=== PATIENT | male | born 1930 | race Caucasian/White ===

== ENCOUNTER 2017-11-01 19:38 | Emergency (ER) | payer MEDICARE, OTHER ==
[2017-11-01 20:22] LABS: Hematocrit 43.6 % (42.0-52.0); Mean Platelet Volume 8.4 fL (7.4-10.4); Red Blood Cell (RBC) Count 4.47 mill/uL (4.70-6.10); White Blood Cell (WBC) Count 11.6 thou/uL (4.8-10.8)
[2017-11-01 20:39] LABS: ALT (SGPT) 15 U/L (8-55); AST (SGOT) 24 U/L (5-34); Alkaline Phosphatase 66 U/L (40-150); Anion Gap 13 mmol/L (10-20); BUN (Urea Nitrogen) 20 mg/dL (8.4-25.7); Bilirubin, Total 0.6 mg/dL (0.2-1.2); Calc. Creatinine Clearance 0 mL/min (70-130); Calcium 9.9 mg/dL (7.8-10.44); Carbon Dioxide 28 mmol/L (23-31); Chloride 105 mmol/L (98-107); Estimated GFR-MDRD 62; Protein, Total 7.9 g/dL (5.8-8.1)
[2017-11-01 20:41] LABS: Band 17 % (5-11); Neutrophil 41 % (42-75)
--- NOTE | 2017-11-01 21:12 | RAD ---
SEMI UPRPIGHT PORTABLE CHEST ONE VIEW: History: 87-year-old male with history of cough and fever. Comparison: 04-26-17 FINDINGS: Monitor leads overlie the chest. Atherosclerotic ectatic changes of the aorta. Stable lower right nec k and upper anterior mediastinal mass with some shift of the trachea to the left, evidence for large thyroid. Stable from prior study. No confluent pneumonia, overt edema, or pleural effusion. IMPRESSION: Stable chest. 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 Atherosclerosis of the aorta with ectasia. No new process. POS: [facility]
[2017-11-01 22:59] LABS: Bilirubin Negative (Negative); Blood, Urine Moderate (Negative); Glucose, Urine (Dipstick) Negative (Negative); Ketone, Urine Negative (Negative); Nitrite Negative (Negative); Protein, Urine (Dipstick) 100 mg/dL (Neg-Trace)
[2017-11-01 23:01] LABS: Bacteria/HPF None Seen HPF (None Seen)
[2017-11-01 23:17] LABS: Hyaline Casts/LPF 0-3 HYALINE CAST LPF (0-3 Hyaline); Transitional Epithelial NONE SEEN HPF (0-3); Yeast-All Forms None Seen HPF (None Seen)
[2017-11-01 23:18] LABS: Renal Epithelial 0-3 HPF (0-3)
== END 2017-11-02 00:38 | disposition home or self-care (01) ==
LOC: ERS 19:38
DX: E86.0 Dehydration (principal); J06.9 Acute upper respiratory infection, unspecified; K21.9 Gastro-esophageal reflux disease without esophagitis; M19.90 Unspecified osteoarthritis, unspecified site; F41.9 Anxiety disorder, unspecified; F32.9 Major depressive disorder, single episode, unspecified; G30.9 Alzheimer's disease, unspecified; F02.80 Dementia in other diseases classified elsewhere, unspecified severity, without behavioral disturbance, psychotic disturbance, mood disturbance, and anxiety; Z87.891 Personal history of nicotine dependence
CPT/HCPCS: 36415; 51701; 71010; 80053; 81003; 81015; 85025; 87040; 87149

== ENCOUNTER 2018-11-18 13:35 | Inpatient (IN) | payer MEDICARE ==
[~2018-11-18 13:35] MED LIST: ISOVUE-370 76%-LOCM 1 ML ONE
--- NOTE | 2018-11-18 14:15 | CT ---
CT BRAIN: Date: 11/18/18 PROVIDED CLINICAL HISTORY: Right-sided facial droop and weakness. FINDINGS: Comparison with 01/22/17. The ventricular system is unchanged in size and morphology. There is evidence of encephalomalacia inv olving the cerebellum and occipital regions, unchanged with respect to the prior study. 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 There is no evidence for acute intracranial he morrhage or mass effect. Asymmetric CSF density within the left frontal region may reflect hygroma. IMPRESSION: No evidence for acute intracranial hemorrhage. Findings communicated to Dr. Yates at 1345 hours on 11/18/18. CODE CR. POS: [facility]
[2018-11-18 14:17] LABS: INR-International Normal Ratio 1.1; Prothrombin Time 14.5 SEC (12.0-14.7)
[2018-11-18 14:18] LABS: PTT 32.1 SEC (22.9-36.1)
[2018-11-18 14:19] LABS: #Basophils 0.1 thou/uL (0.0-0.2); #Eosinphils 0.2 thou/uL (0.0-0.7); #Lymphocytes 2.5 thou/uL (1.20-3.40); #Monocytes 1.4 thou/uL (0.11-0.59); #Neutrophils 5.2 thou/uL (1.40-6.50); %Basophils 0.9 % (0.0-1.0); %Eosinophils 1.8 % (0.0-10.0); %Lymphocytes 27.2 % (21.0-51.0); %Monocytes 14.7 % (0.0-10.0); %Neutrophils 55.4 % (42.0-75.0); Hemoglobin 13.3 g/dL (14.0-18.0); Mean Corpuscular HGB CONC 32.6 g/dL (32.0-36.0); Mean Corpuscular Hemoglobin 30.9 pg (27.0-31.0); Mean Corpuscular Volume 94.6 fL (78.0-98.0); Mean Platelet Volume 7.8 fL (7.4-10.4); Platelet Count 335 thou/uL (130-400); RBC Distribution Width 12.4 % (11.5-14.5); White Blood Cell (WBC) Count 9.3 thou/uL (4.8-10.8)
[2018-11-18 14:25] LABS: ALT (SGPT) 8 U/L (8-55); AST (SGOT) 19 U/L (5-34); Albumin 3.3 g/dL (3.4-4.8); Alkaline Phosphatase 47 U/L (40-150); Anion Gap 15 mmol/L (10-20); BUN (Urea Nitrogen) 19 mg/dL (8.4-25.7); Bilirubin, Total 0.5 mg/dL (0.2-1.2); CK (CPK) 304 U/L (30-200); Calc. Creatinine Clearance 0 mL/min (70-130); Calcium 8.9 mg/dL (7.8-10.44); Carbon Dioxide 22 mmol/L (23-31); Chloride 105 mmol/L (98-107); Estimated GFR-MDRD 83; Glucose 102 mg/dL (83-110); Potassium 4.2 mmol/L (3.5-5.1); Protein, Total 6.3 g/dL (5.8-8.1); Sodium 138 mmol/L (136-145)
--- NOTE | 2018-11-18 14:58 | CT ---
CT ANGIOGRAM OF HEAD CT ANGIOGRAM OF NECK: Date: 11/18/18 COMPARISON: None. HISTORY: Right-sided facial droop and weakness. TECHNIQUE: Axial CT imaging is obtained at 1.2 mm intervals from the skull base through the lung apices with IV contrast using a CT angiogram protocol. Coronal and sagittal 3D reformatted imaging obtained. FINDINGS: Imaged lung apices are unremarkable. Incidental note is made of a left upper lobe granuloma, as well as hilar calcified nodes on the left, evidence of prior granulomatous disease. The thyroid gland is abnormal with an enlarged and lobulated right lobe, which appears to contain a l arge, complex nodule, and/or multiple complex solid nodules, in total measuring at least 7.6 cm crani ocaudal dimension, 5.7 cm transverse dimension, and 4.4 cm AP dimension. The retroantral and the parapharyngeal fat appears clear bilaterally. The parotid and the submandibular glands appear grossly unremarkable. Region of the tonsillar pillars, epiglottis and preepiglottic fat, hyoid bone, thyroid cartilage, and cricoid cartilage appear grossly unremarkable. No lymphadenopathy in the neck. There is atherosclerotic calcification involving the aortic arch. On the basis of NASCET criteria, th ere is no hemodynamically significant stenosis involving the origin of the innominate artery, the vamshi gin of the right common carotid artery, the origin of the right subclavian artery, the origin of the left common carotid artery, or the origin of the left subclavian artery. There is tortuosity involvin g the proximal subclavian artery on the right and the proximal aspect of bilateral common carotid art eries. The left vertebral artery is hypoplastic, but patent throughout its course. The right vertebral arter y is dominant and tortuous distally. There is no hemodynamically significant stenosis involving the common carotid artery on either side o n the basis of NASCET criteria. There is calcified plaque at the origin of the left internal carotid artery with no hemodynamically s ignificant stenosis on the basis of NASCET criteria. The internal carotid artery on the right also de monstrates no evidence for hemodynamically significant stenosis. The basilar artery is patent and diffusely ectatic. Branches of the basilar artery appear patent. There is atherosclerotic calcification of the cavernous carotid arteries bilaterally. The bifurcation of the internal carotid artery appears normal bilaterally. The A1 segment, region of the anterior communicating artery, and the distal PAM branches appear unremarkable. The M1 segment appears patent bilaterally. The MCA bifurcation appears grossly unremarkable. Distal M CA branches appear grossly intact with no central occlusion, high grade stenosis, or saccular aneurys m seen involving the anterior or posterior circulation. Review of the osseous structures demonstrate multilevel cervical spine degenerative change, most prom inent at C5-6 and C6-7. No worrisome lytic or blastic bone lesion. IMPRESSION: 1. No hemodynamically significant stenosis involving the arterial structures of the neck. 2. Intracranial arterial structures demonstrate no evidence for central occlusion. 3. Abnormal appearance of the thyroid gland, for which follow-up thyroid ultrasound is suggested. Results called to Dr. Yates at 1410 hours on 11/18/18. CODE CR. POS: [facility]
[2018-11-18 15:02] LABS: Bilirubin Negative (Negative); Blood, Urine Moderate (Negative); Clarity CLOUDY (Clear); Glucose, Urine (Dipstick) Negative (Negative); Leukocyte Large (Negative); Nitrite Negative (Negative); Protein, Urine (Dipstick) Negative (Neg-Trace); Specific Gravity, Urine 1.041 (1.002-1.036)
[2018-11-18 15:06] LABS: Bacteria/HPF 4+ HPF (None Seen); Squamous Epithelial 0-3 HPF (0-3)
[2018-11-18 15:07] LABS: Pathc Cast-AUWi Flag 4.94 (0-2.49)
[2018-11-18 15:13] LABS: Hyaline Casts/LPF 0-3 HYALINE CAST LPF (0-3 Hyaline); Other Casts/LPF None Seen LPF (0-3 Hyaline)
[2018-11-18] MEDS ORDERED: Acetaminophen 325 MG TAB PO PRN (15:38)
--- NOTE | 2018-11-18 17:11 | HP ---
PRIMARY CARE PROVIDER: Dr. Rei Thao. CHIEF COMPLAINT: Weakness. HISTORY OF PRESENT ILLNESS: Mr. Tolentino is a pleasant 88-year-old gentleman, who was seen at [facility] on November 18, 2018. The patient himself is unable to provide any significant history. Collateral history was obtained from discussion with the patient's son by the bedside, discussion with emergency room physician, and review of medical records. Mr. Tolentino is a resident at [facility]. 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 At baseline, he recognizes his family members. He needs help ambulating. Around 1:30 p.m. today, he was found to have right-sided facial droop and right upper extremity weakness. He was therefore sent to the emergency room. In the emergency room, his symptoms appear to have resolved. REVIEW OF SYSTEMS: Could not be completed secondary to the patient's noncommunicative status. PAST MEDICAL HISTORY: Dementia, benign prostatic hypertrophy, legal blindness, legal deafness, hypertension, chronic leg pain, back pain, osteoarthritis, gastroesophageal reflux disease, allergic rhinitis, and TIA x2 about 6 to 8 years ago. PAST SURGICAL HISTORY: Cholecystectomy, splenectomy, right nephrectomy, and right ankle surgery. PSYCHIATRIC HISTORY: Anxiety, mild depression, and Alzheimer disease. SOCIAL HISTORY: The patient is a former tobacco user. No history of current tobacco use, alcohol use, or recreational drug use. FAMILY HISTORY: No family history of cerebrovascular accident. CODE STATUS: I discussed his code status with his son. The patient is full code. ALLERGIES: CIMETIDINE, ERYTHROMYCIN, PENICILLIN, SULFA, TAGAMET ORAL SOLUTION. CURRENT MEDICATIONS: 1. Gabapentin 100 mg two times a day. 2. Protonix 40 mg daily. 3. Haldol as needed. 4. Metamucil daily as needed. 5. Bisoprolol 5 mg at bedtime. 6. Donepezil 10 mg at bedtime. PHYSICAL EXAMINATION: GENERAL: Mr. Tolentino is awake and alert, not in acute distress. VITAL SIGNS: Blood pressure is 101/78, pulse 78, respiratory rate 20, and oxygen saturation 95% on room air. He is afebrile. EYES: No scleral icterus. No conjunctival pallor. ENT: Pooling of saliva in the mouth. He is edentulous. NECK: Supple, nontender. Trachea is midline. RESPIRATORY: Accessory muscles of breathing are not active. Chest wall movements are symmetric bilaterally. LUNGS: Clear to auscultation without wheeze, rhonchi, or crepitations. CARDIOVASCULAR: S1 and S2 are heard, regular. Peripheral pulses palpable. No carotid bruit. No pericardial rub. ABDOMEN: Soft, nontender. Bowel sounds are heard. No hepatomegaly. No splenomegaly. NEUROLOGIC: Full neurologic examination was not possible secondary to the patient's noncooperation. Pupils are equal and reactive to light bilaterally. There is no facial droop. Power is 5/5 in all four extremities. No focal motor or sensory deficits. Deep tendon reflexes 2+. Plantars downgoing bilaterally. MUSCULOSKELETAL: Power is 5/5 in all four extremities. SKIN: No rashes or subcutaneous nodules. LYMPHATIC: No cervical lymphadenopathy. PSYCHIATRIC: Normal mood. Normal affect. The patient is oriented to person, not to place or time. LABORATORY DATA AND INVESTIGATIONS: Mr. Tolentino's labs and investigations were reviewed. I reviewed his electrocardiogram, which shows normal sinus rhythm with premature atrial complexes, no ST changes to suggest an acute coronary syndrome. I also reviewed noncontrast CT scan of the brain, which did not show any acute intracranial abnormalities. He also had CT scan of [place], which did not show any hemodynamically significant stenosis involving the arterial structures of the neck. Intracranial arterial structures did not demonstrate any evidence for central occlusion. He had abnormal appearance of the thyroid gland, radiologist recommends followup thyroid ultrasound. He has normocytic anemia with hemoglobin 13.3, normal white count, normal platelet count. INR 1.1. Normal sodium, normal potassium, slightly decreased carbon dioxide of 22, normal creatinine, mildly decreased albumin of 3.3, otherwise unremarkable liver profile, elevated CK of 304, and normal troponin-I. Urinalysis is positive for large amount of leukocyte esterase. ASSESSMENT AND PLAN: Mr. Tolentino is a pleasant 88-year-old gentleman, who was seen at [facility] on November 18, 2018. His problem list includes: 1. Weakness: Mr. Tolentino is presenting with weakness at [facility]. His symptoms appears to have improved. The main concern at this time is whether he had a TIA. He will be started on aspirin and statin. I will check MRI of the brain and 2D echocardiogram. We will also consult Neurology Service for opinion and help with management. 2. Urinary tract infection: The patient also presents with evidence of urinary tract infection. We will start him on empiric antibiotics. We will follow urine cultures. 3. Dementia: We will continue home medications once clarified. 4. Hypertension: We will resume home medications. Monitor vital signs and titrate antihypertensives as needed. 5. Gastroesophageal reflux disease: We will continue PPI. 6. Abnormal thyroid gland: The patient's thyroid gland has an abnormal appearance on CT scan. He will need further workup as outpatient. Many thanks for allowing me to participate in your patient's care. Please feel free to contact me with any questions or concerns. LEVEL OF RISK: High. LEVEL OF COMPLEXITY: High. Job ID: [id number] [facility]
[2018-11-18] MEDS ORDERED: cefTRIAXone\\ROCEPHIN 1 GM in Sodium Chloride 0.9% 100 ML IVPB SCH (18:00)
[2018-11-18 18:39] LABS: Troponin I Less than 0.010 ng/mL (< 0.028)
[2018-11-18 19:53] VITALS: BMI 28.1
[2018-11-18] MEDS: cefTRIAXone\\ROCEPHIN 1 GM in Sodium Chloride 0.9% 100 ML IVPB SCH (21:05)
[2018-11-18] MEDS: Haloperidol Lactate 5 MG/ML VIAL IM PRN (22:02)
[2018-11-19] MEDS: Haloperidol Lactate 5 MG/ML VIAL IM PRN ×2 (02:13→15:30)
[2018-11-19] MEDS: Atorvastatin Calcium 20 MG TAB PO SCH ×2 (05:18→21:45)
[2018-11-19 07:45] LABS: #Basophils 0.1 thou/uL (0.0-0.2); #Eosinphils 0.1 thou/uL (0.0-0.7); #Lymphocytes 2.9 thou/uL (1.20-3.40); #Monocytes 1.5 thou/uL (0.11-0.59); #Neutrophils 7.2 thou/uL (1.40-6.50); %Eosinophils 1.1 % (0.0-10.0); %Lymphocytes 24.7 % (21.0-51.0); %Monocytes 12.6 % (0.0-10.0); %Neutrophils 60.7 % (42.0-75.0); Hemoglobin 14.5 g/dL (14.0-18.0); Mean Corpuscular HGB CONC 33.2 g/dL (32.0-36.0); Mean Corpuscular Volume 93.2 fL (78.0-98.0); Mean Platelet Volume 7.7 fL (7.4-10.4); Platelet Count 379 thou/uL (130-400); RBC Distribution Width 12.3 % (11.5-14.5); Red Blood Cell (RBC) Count 4.68 mill/uL (4.70-6.10); White Blood Cell (WBC) Count 11.8 thou/uL (4.8-10.8)
[2018-11-19 07:53] LABS: Anion Gap 13 mmol/L (10-20); BUN (Urea Nitrogen) 16 mg/dL (8.4-25.7); Calc. Creatinine Clearance 71 mL/min (70-130); Calcium 9.4 mg/dL (7.8-10.44); Carbon Dioxide 25 mmol/L (23-31); Cardiac Risk 3.6 (Less than 4.5); Chloride 107 mmol/L (98-107); Cholesterol 140 mg/dl (< 200 Desired); Estimated GFR-MDRD 81; Glucose 102 mg/dL (83-110); HDL Cholesterol 39 mg/dL (>60 Neg Risk); LDL Cholesterol, Calculated 87 mg/dL; Potassium 3.9 mmol/L (3.5-5.1); Sodium 141 mmol/L (136-145); Triglycerides 72 mg/dL (Less than 150)
[2018-11-19] MEDS: Enoxaparin Sodium 40 MG/0.4 ML SYRINGE SC SCH (10:02)
[2018-11-19] MEDS: Aspirin 81 mg Enteric Coated Tablet PO SCH (10:03)
[2018-11-19] MEDS ORDERED: Lorazepam 0.5 MG TAB PO PRN (10:11)
[2018-11-19] MEDS ORDERED: Aspirin 81 mg Enteric Coated Tablet PO SCH (11:00)
[2018-11-19] MEDS ORDERED: Lorazepam 2 MG/ML VIAL SLOW IVP SCH (11:00)
--- NOTE | 2018-11-19 12:04 | CON ---
DATE OF CONSULTATION: 11/19/2018 CONSULTING PHYSICIAN: Hospitalist Service. IMPRESSION: 1. Possible transient ischemic attack. 2. Deafness. 3. Blindness. PLAN: 1. Continue aspirin and a statin. 2. The patient can be returned to the halfway unit. HISTORY OF PRESENT ILLNESS: Mr. Tolentino is an 88-year-old man, who is in a halfway unit. He reportedly had some right-sided weakness. He was brought to the hospital for evaluation. A CT scan and CTA were both unremarkable. He is unable to give me any history. PAST MEDICAL HISTORY: Apparently is otherwise negative. ALLERGIES: TAGAMET, ERYTHROMYCIN, AND PENICILLIN. SOCIAL HISTORY: shelter resident. There is no reported tobacco or alcohol use. FAMILY HISTORY: Not obtainable. MEDICATIONS: Reviewed. REVIEW OF SYSTEMS: Not obtainable due to his deafness. PHYSICAL EXAMINATION: GENERAL: He is a well-nourished elderly man, lying in bed, no distress. VITAL SIGNS: Blood pressure 118/77, pulse 87, respirations 20, and temperature 98.3. HEENT: Pupils are equal, minimally reactive. Conjunctivae clear. Oropharynx clear. NECK: Supple. No lymphadenopathy noted. ABDOMEN: Soft and nontender. EXTREMITIES: No cyanosis, clubbing, or edema. NEUROLOGIC: He appears to be awake and communicative, but could not answer any questions due to his deafness. His face appeared to be symmetric. He had symmetric central sterile technician strength. He had symmetric tone. Sensation was grossly equal. Gait is not testable. No abnormal movements were seen. LABORATORY STUDIES: It was unremarkable other than he appears to have a urinary tract infection. SUMMARY: This is an 88-year-old man with questionable history of a TIA. He has been started on aspirin and a statin. I do not see any need for further workup. Job ID: [id number]
[2018-11-19] MEDS ORDERED: traMADol HCl 50 MG TAB PO PRN (12:42)
[2018-11-19] MEDS ORDERED: Vicks VapoRub 50 gm Jar TOP PRN (12:42)
[2018-11-19] MEDS ORDERED: SUMAtriptan Succinate 25 MG TAB PO PRN (12:42)
--- NOTE | 2018-11-19 12:47 | PDOC.PN ---
- Subjective Encounter Start Date: 11/19/18 Encounter Start Time: 07:20 Pt seen for followup re:TIA. Pt unable to provide significant history, unable to complete ROS. - Objective Resuscitation Status - Order Detail: 11/18/18 15:38 Resuscitation Status Routine Resuscitation Status: FULL: Full Resuscitation Discussed with: son RANDY Reviewed: Yes Vital Signs & Weight: Vital Signs (12 hours) Temp Pulse Resp BP Pulse Ox 11/19/18 12:00 97.8 F 70 20 118/94 H 95 11/19/18 08:00 98.3 F 87 20 118/77 93 L 11/19/18 04:00 97.8 F 103 H 18 105/75 94 L Weight Weight 185 lb 3.2 oz I&O: 11/18/18 11/19/18 11/20/18 06:59 06:59 06:59 Output Total 300 Balance -300 Result Diagrams: 11/19/18 07:25 11/19/18 07:25 Additional Labs: Accuchecks 11/18/18 13:39 POC Glucose 105 EKG Reviewed by me: Yes (Tele: NSR) Phys Exam - Physical Examination Constitutional: NAD HEENT: moist MMs Neck: supple Respiratory: clear to auscultation bilateral Cardiovascular: RRR Gastrointestinal: soft Neurological: moves all 4 limbs Psychiatric: normal affect Dx/Plan (1) TIA (transient ischemic attack) Code(s): G45.9 - TRANSIENT CEREBRAL ISCHEMIC ATTACK, UNSPECIFIED Status: Acute Comment: continue aspirin and statin (2) UTI (urinary tract infection) Status: Acute Comment: continue ceftriaxone, follow urine cultures (3) Hypertension Code(s): I10 - ESSENTIAL (PRIMARY) HYPERTENSION Status: Chronic Comment: controlled - Plan * . Review of Systems - Medications/Allergies Allergies/Adverse Reactions: Allergies Allergy/AdvReac Type Severity Reaction Status Date / Time cimetidine [From Tagamet] Allergy Verified 03/14/17 16:52 cimetidine HCl [From Tagamet] Allergy Verified 03/14/17 16:52 erythromycin base Allergy Verified 03/14/17 16:52 Penicillins Allergy Verified 03/14/17 16:52 Sulfa (Sulfonamide Allergy Verified 03/14/17 16:52 Antibiotics) sulfamethoxazole Allergy Verified 03/14/17 16:52 [From Bactrim] trimethoprim [From Bactrim] Allergy Verified 03/14/17 16:52 Medications: Current Medications Acetaminophen (Tylenol) 650 mg PO Q4H PRN PRN Reason: Headache/Fever/Mild Pain (1-3) Aspirin (Ecotrin) 81 mg PO DAILY [facility] Last Admin: 11/19/18 10:03 Dose: Not Given Atorvastatin Calcium (Lipitor) 20 mg PO HS [facility] Last Admin: 11/19/18 05:18 Dose: Not Given Bisoprolol Fumarate (Zebeta) 5 mg PO HS [facility] Camphor/Menthol/Eucalyptus (Vicks Vaporub) 0 gm TOP Q24HR PRN PRN Reason: Congestion Donepezil HCl (Aricept) 10 mg PO HS [facility] Enoxaparin Sodium (Lovenox) 40 mg SC 0900 [facility] Last Admin: 11/19/18 10:02 Dose: 40 mg Gabapentin (Neurontin) 200 mg PO BID [facility] Haloperidol Lactate (Haldol) 1 mg IM Q2H PRN PRN Reason: Agitation Last Admin: 11/19/18 02:13 Dose: 1 mg Haloperidol Lactate (Haldol) 5 mg IM QPM PRN PRN Reason: Agitation Ceftriaxone Sodium 1 gm/ (Sodium Chloride) 100 mls @ 200 mls/hr IVPB 1999 [facility] Last Admin: 11/18/18 21:05 Dose: 100 mls Non-Formulary Medication (Melatonin/Pyridoxine [Melatonin 5 Mg Tablet]) 5 mg PO QPM [facility] Non-Formulary Medication (Tolnaftate [Tinactin]) 1 applic TOP BID [facility] Non-Formulary Medication (Carboxymethylcellulose Sodium [Refresh Tears]) 1 drop EA EYE Q1H PRN PRN Reason: Dry Eyes Non-Formulary Medication (Psyllium Husk [Metamucil]) 660 gm PO DAILY PRN PRN Reason: Constipation Pantoprazole Sodium (Protonix) 40 mg PO DAILY [facility] Polyethylene Glycol (Miralax) 17 gm PO DAILY [facility] Propylene Glycol (Systane Opth Drop 15ml Bot) 1 drop EA EYE TID [facility] Sodium Chloride (Flush - Normal Saline) 10 ml IVF PRN PRN PRN Reason: Saline Flush Last Admin: 11/18/18 21:06 Dose: 10 ml Sumatriptan Succinate (Imitrex) 50 mg PO DAILY PRN PRN Reason: Headache Tramadol HCl (Ultram) 50 mg PO Q6H PRN PRN Reason: Pain
--- NOTE | 2018-11-19 14:39 | MRI ---
MRI BRAIN WITHOUT CONTRAST: DATE: 11/19/2018. COMPARISON: None. HISTORY: Right-sided weakness, slurred speech. TECHNIQUE: Multiplanar, multisequence MR imaging of the brain obtained without contrast. FINDINGS: The imaged paranasal sinuses and mastoid air cells demonstrate no significant opacification. The dif fusion weighted imaging demonstrates no evidence for acute infarction. The axial gradient echo imagi ng demonstrates blooming artifact within the basal ganglia bilaterally suggesting calcification. The re is prominent cerebral volume loss. There is multifocal periventricular, deep, and subcortical whi te matter T2 and FLAIR hyperintensity, evidence of significant small-vessel disease. There are areas of prior infarction involving bilateral occipital lobes and bilateral cerebellar hemispheres. Basilar artery is ectatic and tortuous. There is normal regional bone marrow signal intensity noted. 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 No evidence for acute infarction is noted. POS: [facility]
[2018-11-19] MEDS: Polyethylene Glycol OPTH DROP 15 ML BOT EA EYE SCH ×2 (16:05→21:46)
[2018-11-19] MEDS ORDERED: MELATONIN PO SCH (21:00)
[2018-11-19] MEDS ORDERED: PYRIDOXINE PO SCH (21:00)
[2018-11-19] MEDS: Donepezil HCl 5 MG TAB PO SCH (21:45)
[2018-11-19] MEDS: Gabapentin 100 MG CAP PO SCH (21:45)
[2018-11-19] MEDS: Bisoprolol Fumarate 5 MG TAB PO SCH (21:45)
[2018-11-19] MEDS: cefTRIAXone\\ROCEPHIN 1 GM in Sodium Chloride 0.9% 100 ML IVPB SCH (21:45)
[2018-11-20 05:24] LABS: #Basophils 0.1 thou/uL (0.0-0.2); #Eosinphils 0.1 thou/uL (0.0-0.7); #Lymphocytes 2.7 thou/uL (1.20-3.40); #Monocytes 1.5 thou/uL (0.11-0.59); #Neutrophils 7.2 thou/uL (1.40-6.50); %Basophils 0.7 % (0.0-1.0); %Eosinophils 1.2 % (0.0-10.0); %Lymphocytes 22.9 % (21.0-51.0); %Monocytes 13.1 % (0.0-10.0); %Neutrophils 62.2 % (42.0-75.0); Hemoglobin 14.7 g/dL (14.0-18.0); Mean Corpuscular HGB CONC 33.1 g/dL (32.0-36.0); Mean Corpuscular Hemoglobin 31.1 pg (27.0-31.0); Mean Corpuscular Volume 94.1 fL (78.0-98.0); Platelet Count 372 thou/uL (130-400); RBC Distribution Width 12.3 % (11.5-14.5); Red Blood Cell (RBC) Count 4.71 mill/uL (4.70-6.10); White Blood Cell (WBC) Count 11.6 thou/uL (4.8-10.8)
[2018-11-20 05:54] LABS: Anion Gap 13 mmol/L (10-20); BUN (Urea Nitrogen) 18 mg/dL (8.4-25.7); Calc. Creatinine Clearance 69 mL/min (70-130); Calcium 9.2 mg/dL (7.8-10.44); Carbon Dioxide 25 mmol/L (23-31); Chloride 106 mmol/L (98-107); Estimated GFR-MDRD 79; Glucose 98 mg/dL (83-110); Potassium 3.6 mmol/L (3.5-5.1); Sodium 140 mmol/L (136-145)
[2018-11-20] MEDS ORDERED: Metamucil PACK PO PRN (09:00)
[2018-11-20] MEDS: Enoxaparin Sodium 40 MG/0.4 ML SYRINGE SC SCH (09:56)
[2018-11-20] MEDS: Gabapentin 100 MG CAP PO SCH ×2 (09:57→20:38)
[2018-11-20] MEDS: Aspirin 81 mg Enteric Coated Tablet PO SCH (09:57)
[2018-11-20] MEDS: Polyethylene Glycol OPTH DROP 15 ML BOT EA EYE SCH ×3 (09:57→20:39)
[2018-11-20] MEDS: Polyethylene Glycol 3350 17 GM Packet PO SCH (09:58)
--- NOTE | 2018-11-20 14:34 | PDOC.PN ---
- Subjective Encounter Start Date: 11/20/18 Encounter Start Time: 14:33 -: non-verbal Pt seen for followup re:UTI. Pt not answering questions, unable to complete ROS. - Objective Resuscitation Status - Order Detail: 11/18/18 15:38 Resuscitation Status Routine Resuscitation Status: FULL: Full Resuscitation Discussed with: son RANDY Reviewed: Yes Vital Signs & Weight: Vital Signs (12 hours) Temp Pulse Resp BP BP Pulse Ox 11/20/18 12:30 130/72 11/20/18 12:00 97.4 F L 95 18 93 L 11/20/18 08:00 97.8 F 89 18 117/84 96 11/20/18 04:00 98.6 F 86 18 121/79 95 Weight Weight 185 lb 3.2 oz I&O: 11/19/18 11/20/18 11/21/18 06:59 06:59 06:59 Intake Total 522 780 Output Total 300 Balance -300 522 780 Result Diagrams: 11/20/18 04:48 11/20/18 04:48 EKG Reviewed by me: Yes (Tele; NSR) Phys Exam - Physical Examination Constitutional: NAD HEENT: moist MMs Neck: supple Respiratory: clear to auscultation bilateral Cardiovascular: RRR Gastrointestinal: soft Neurological: moves all 4 limbs Psychiatric: normal affect Dx/Plan (1) UTI (urinary tract infection) Status: Acute Comment: continue ceftriaxone for presumptive Escherichia coli UTI, follow urine cultures (2) TIA (transient ischemic attack) Code(s): G45.9 - TRANSIENT CEREBRAL ISCHEMIC ATTACK, UNSPECIFIED Status: Acute Comment: will continue aspirin and statin (3) Hypertension Code(s): I10 - ESSENTIAL (PRIMARY) HYPERTENSION Status: Chronic Comment: controlled - Plan * . Review of Systems - Medications/Allergies Allergies/Adverse Reactions: Allergies Allergy/AdvReac Type Severity Reaction Status Date / Time cimetidine [From Tagamet] Allergy Verified 03/14/17 16:52 cimetidine HCl [From Tagamet] Allergy Verified 03/14/17 16:52 erythromycin base Allergy Verified 03/14/17 16:52 Penicillins Allergy Verified 03/14/17 16:52 Sulfa (Sulfonamide Allergy Verified 03/14/17 16:52 Antibiotics) sulfamethoxazole Allergy Verified 03/14/17 16:52 [From Bactrim] trimethoprim [From Bactrim] Allergy Verified 03/14/17 16:52 Medications: Current Medications Acetaminophen (Tylenol) 650 mg PO Q4H PRN PRN Reason: Headache/Fever/Mild Pain (1-3) Artificial Tears (Tears Renewed 15ml Bottle) 1 drop EA EYE Q1H PRN PRN Reason: Dry Eyes Aspirin (Ecotrin) 81 mg PO DAILY [facility] Last Admin: 11/20/18 09:57 Dose: 81 mg Atorvastatin Calcium (Lipitor) 20 mg PO HS [facility] Last Admin: 11/19/18 21:45 Dose: 20 mg Bisoprolol Fumarate (Zebeta) 5 mg PO HS [facility] Last Admin: 11/19/18 21:45 Dose: 5 mg Camphor/Menthol/Eucalyptus (Vicks Vaporub) 0 gm TOP Q24HR PRN PRN Reason: Congestion Donepezil HCl (Aricept) 10 mg PO HS [facility] Last Admin: 11/19/18 21:45 Dose: 10 mg Enoxaparin Sodium (Lovenox) 40 mg SC 0900 [facility] Last Admin: 11/20/18 09:56 Dose: 40 mg Gabapentin (Neurontin) 200 mg PO BID [facility] Last Admin: 11/20/18 09:57 Dose: 200 mg Haloperidol Lactate (Haldol) 1 mg IM Q2H PRN PRN Reason: Agitation Last Admin: 11/19/18 15:30 Dose: 1 mg Haloperidol Lactate (Haldol) 5 mg IM QPM PRN PRN Reason: Agitation Ceftriaxone Sodium 1 gm/ (Sodium Chloride) 100 mls @ 200 mls/hr IVPB 1999 [facility] Last Admin: 11/19/18 21:45 Dose: 100 mls Pantoprazole Sodium (Protonix) 40 mg PO DAILY [facility] Last Admin: 11/20/18 09:57 Dose: 40 mg Melatonin/Pyridoxine [Melatonin 5 Mg Tablet] 5 Mg 0 each PO QPM [facility] Polyethylene Glycol (Miralax) 17 gm PO DAILY [facility] Last Admin: 11/20/18 09:58 Dose: Not Given Propylene Glycol (Systane Opth Drop 15ml Bot) 1 drop EA EYE TID [facility] Last Admin: 11/20/18 14:16 Dose: 1 drop Psyllium Hydrophilic Mucilloid (Metamucil) 1 pk PO DAILY PRN PRN Reason: Constipation Sodium Chloride (Flush - Normal Saline) 10 ml IVF PRN PRN PRN Reason: Saline Flush Last Admin: 11/20/18 09:57 Dose: 10 ml Sumatriptan Succinate (Imitrex) 50 mg PO DAILY PRN PRN Reason: Headache Tolnaftate (Tinactin 1% Cream) 0 gm TOP BID [facility] Last Admin: 11/20/18 09:56 Dose: 1 appful Tramadol HCl (Ultram) 50 mg PO Q6H PRN PRN Reason: Pain
[2018-11-20] MEDS: Donepezil HCl 5 MG TAB PO SCH (20:38)
[2018-11-20] MEDS: Atorvastatin Calcium 20 MG TAB PO SCH (20:38)
[2018-11-20] MEDS: Bisoprolol Fumarate 5 MG TAB PO SCH (20:38)
[2018-11-20] MEDS: cefTRIAXone\\ROCEPHIN 1 GM in Sodium Chloride 0.9% 100 ML IVPB SCH (20:39)
[2018-11-20] MEDS: Haloperidol Lactate 5 MG/ML VIAL IM PRN (22:21)
[2018-11-21] MEDS ORDERED: Sodium Chloride 0.9% 1,000 ML IV SCH (02:15)
[2018-11-21 05:22] LABS: #Lymphocytes 0.7 thou/uL (1.20-3.40); #Monocytes 0.7 thou/uL (0.11-0.59); #Neutrophils 9.5 thou/uL (1.40-6.50); %Basophils 0.1 % (0.0-1.0); %Eosinophils 0.4 % (0.0-10.0); %Lymphocytes 6.6 % (21.0-51.0); %Monocytes 6.5 % (0.0-10.0); %Neutrophils 86.4 % (42.0-75.0); Hemoglobin 15.2 g/dL (14.0-18.0); Mean Corpuscular HGB CONC 33.2 g/dL (32.0-36.0); Mean Corpuscular Hemoglobin 30.9 pg (27.0-31.0); Mean Corpuscular Volume 93.3 fL (78.0-98.0); Mean Platelet Volume 8.2 fL (7.4-10.4); Platelet Count 365 thou/uL (130-400); RBC Distribution Width 12.5 % (11.5-14.5); Red Blood Cell (RBC) Count 4.92 mill/uL (4.70-6.10)
[2018-11-21 05:44] LABS: Anion Gap 18 mmol/L (10-20); BUN (Urea Nitrogen) 24 mg/dL (8.4-25.7); Calc. Creatinine Clearance 59 mL/min (70-130); Calcium 9.2 mg/dL (7.8-10.44); Carbon Dioxide 18 mmol/L (23-31); Chloride 107 mmol/L (98-107); Estimated GFR-MDRD 66; Glucose 125 mg/dL (83-110); Potassium 3.4 mmol/L (3.5-5.1); Sodium 140 mmol/L (136-145)
[2018-11-21] MEDS ORDERED: Potassium Chloride 20 MEQ TAB PO SCH (08:30)
[2018-11-21] MEDS: Polyethylene Glycol 3350 17 GM Packet PO SCH (08:54)
[2018-11-21] MEDS: Aspirin 81 mg Enteric Coated Tablet PO SCH (08:58)
[2018-11-21] MEDS: Gabapentin 100 MG CAP PO SCH ×2 (08:58→23:00)
[2018-11-21] MEDS: Enoxaparin Sodium 40 MG/0.4 ML SYRINGE SC SCH (08:58)
[2018-11-21] MEDS: Polyethylene Glycol OPTH DROP 15 ML BOT EA EYE SCH ×3 (08:59→23:29)
[2018-11-21 10:04] LABS: Free T4 (Free Thyroxine) 1.25 ng/dL (0.70-1.48)
[2018-11-21] MEDS: Digoxin 0.5 MG/2 ML AMP SLOW IVP SCH ×2 (15:14→17:36)
--- NOTE | 2018-11-21 15:29 | PDOC.PN ---
- Subjective Encounter Start Date: 11/21/18 Encounter Start Time: 07:20 Pt seen for followup re: UTI. Pt not answering questions, unable to complete ROS. - Objective Resuscitation Status - Order Detail: 11/18/18 15:38 Resuscitation Status Routine Resuscitation Status: FULL: Full Resuscitation Discussed with: son RANDY Reviewed: Yes Vital Signs & Weight: Vital Signs (12 hours) Temp Pulse Resp BP BP Pulse Ox 11/21/18 15:14 119 H 11/21/18 12:00 99 F 105 H 20 97/70 92 L 11/21/18 08:15 100/72 11/21/18 08:00 98.2 F 112 H 18 87/71 L 92 L 11/21/18 04:00 98.8 F 111 H 20 112/72 93 L Weight Weight 185 lb 3.2 oz I&O: 11/20/18 11/21/18 11/22/18 06:59 06:59 06:59 Intake Total 522 1837 120 Balance 522 1837 120 Result Diagrams: 11/21/18 04:55 11/21/18 04:55 EKG Reviewed by me: Yes (Tele: ? a. fib) Phys Exam - Physical Examination Constitutional: NAD HEENT: moist MMs Neck: supple Respiratory: clear to auscultation bilateral S1, S2, tachy, irreg Gastrointestinal: soft Neurological: moves all 4 limbs Psychiatric: normal affect Dx/Plan (1) UTI (urinary tract infection) Status: Acute Comment: continue ceftriaxone (2) TIA (transient ischemic attack) Code(s): G45.9 - TRANSIENT CEREBRAL ISCHEMIC ATTACK, UNSPECIFIED Status: Acute Comment: on aspirin and statin (3) Arrhythmia Code(s): I49.9 - CARDIAC ARRHYTHMIA, UNSPECIFIED Status: Acute Comment: afib vs MAT. Consult cardiology. (4) Hypertension Code(s): I10 - ESSENTIAL (PRIMARY) HYPERTENSION Status: Chronic Comment: controlled - Plan * . Given new arrhythmia, pt at significant risk of decompensation if discharged at this time. Will change status to inpatient. Review of Systems - Medications/Allergies Allergies/Adverse Reactions: Allergies Allergy/AdvReac Type Severity Reaction Status Date / Time cimetidine [From Tagamet] Allergy Verified 03/14/17 16:52 cimetidine HCl [From Tagamet] Allergy Verified 03/14/17 16:52 erythromycin base Allergy Verified 03/14/17 16:52 Penicillins Allergy Verified 03/14/17 16:52 Sulfa (Sulfonamide Allergy Verified 03/14/17 16:52 Antibiotics) sulfamethoxazole Allergy Verified 03/14/17 16:52 [From Bactrim] trimethoprim [From Bactrim] Allergy Verified 03/14/17 16:52 Medications: Current Medications Acetaminophen (Tylenol) 650 mg PO Q4H PRN PRN Reason: Headache/Fever/Mild Pain (1-3) Artificial Tears (Tears Renewed 15ml Bottle) 1 drop EA EYE Q1H PRN PRN Reason: Dry Eyes Aspirin (Ecotrin) 81 mg PO DAILY ON [facility] OF [facility] Last Admin: 11/21/18 08:58 Dose: 81 mg Atorvastatin Calcium (Lipitor) 20 mg PO HS ON [facility] OF [facility] Last Admin: 11/20/18 20:38 Dose: 20 mg Bisoprolol Fumarate (Zebeta) 5 mg PO HS ON [facility] OF [facility] Last Admin: 11/20/18 20:38 Dose: Not Given Camphor/Menthol/Eucalyptus (Vicks Vaporub) 0 gm TOP Q24HR PRN PRN Reason: Congestion Digoxin (Lanoxin) 0.25 mg SLOW IVP 1500,1700 ON [facility] OF [facility] Stop: 11/21/18 17:01 Last Admin: 11/21/18 15:14 Dose: 0.25 mg Digoxin (Lanoxin) 0.125 mg SLOW IVP QAM ON LICENSE OF [facility] Donepezil HCl (Aricept) 10 mg PO HS ON [facility] OF [facility] Last Admin: 11/20/18 20:38 Dose: 10 mg Enoxaparin Sodium (Lovenox) 40 mg SC 0900 ON [facility] OF [facility] Last Admin: 11/21/18 08:58 Dose: 40 mg Gabapentin (Neurontin) 200 mg PO BID [facility] Last Admin: 11/21/18 08:58 Dose: 200 mg Haloperidol Lactate (Haldol) 1 mg IM Q2H PRN PRN Reason: Agitation Last Admin: 11/19/18 15:30 Dose: 1 mg Haloperidol Lactate (Haldol) 5 mg IM QPM PRN PRN Reason: Agitation Last Admin: 11/20/18 22:21 Dose: 5 mg Ceftriaxone Sodium 1 gm/ (Sodium Chloride) 100 mls @ 200 mls/hr IVPB 2000 [facility] Last Admin: 11/20/18 20:39 Dose: 100 mls Melatonin (Melatonin) 4.5 mg PO HS [facility] Pantoprazole Sodium (Protonix) 40 mg PO DAILY [facility] Last Admin: 11/21/18 08:58 Dose: 40 mg Polyethylene Glycol (Miralax) 17 gm PO DAILY ON [facility] Last Admin: 11/21/18 08:54 Dose: Not Given Propylene Glycol (Systane Opth Drop 15ml Bot) 1 drop EA EYE TID ON LICENSE OF [facility] Last Admin: 11/21/18 15:18 Dose: Not Given Psyllium Hydrophilic Mucilloid (Metamucil) 1 pk PO DAILY PRN PRN Reason: Constipation Pyridoxine HCl (Vitamin B 6) 50 mg PO [facility] Sodium Chloride (Flush - Normal Saline) 10 ml IVF PRN PRN PRN Reason: Saline Flush Last Admin: 11/20/18 09:57 Dose: 10 ml Sumatriptan Succinate (Imitrex) 50 mg PO DAILY PRN PRN Reason: Headache Tolnaftate (Tinactin 1% Cream) 0 gm TOP BID ON [facility] OF [facility] Last Admin: 11/21/18 08:58 Dose: 1 appful Tramadol HCl (Ultram) 50 mg PO Q6H PRN PRN Reason: Pain
[2018-11-21] MEDS: cefTRIAXone\\ROCEPHIN 1 GM in Sodium Chloride 0.9% 100 ML IVPB SCH (22:53)
[2018-11-21] MEDS: Bisoprolol Fumarate 5 MG TAB PO SCH ×2 (23:00→23:19)
[2018-11-21] MEDS: Atorvastatin Calcium 20 MG TAB PO SCH (23:00)
[2018-11-21] MEDS: pyridOXINE 50 MG (B6) TAB PO SCH (23:01)
[2018-11-21] MEDS: Donepezil HCl 5 MG TAB PO SCH (23:01)
[2018-11-21] MEDS: Melatonin 3 MG TAB PO SCH (23:01)
[2018-11-21] MEDS: Artificial Tear Sol 15 ML BOT EA EYE PRN (23:02)
[2018-11-22] MEDS: Enoxaparin Sodium 40 MG/0.4 ML SYRINGE SC SCH (08:32)
[2018-11-22] MEDS: Digoxin 0.5 MG/2 ML AMP SLOW IVP SCH (08:32)
[2018-11-22] MEDS: Gabapentin 100 MG CAP PO SCH ×2 (08:32→20:11)
[2018-11-22] MEDS: Aspirin 81 mg Enteric Coated Tablet PO SCH (08:32)
[2018-11-22] MEDS: Polyethylene Glycol 3350 17 GM Packet PO SCH (08:34)
--- NOTE | 2018-11-22 09:34 | CON ---
DATE OF CONSULTATION: 11/21/2018 HISTORY OF PRESENT ILLNESS: The patient is an unfortunate gentleman with a history of cerebrovascular accident and dementia, who presented with altered mental status. The patient is unable to give a coherent history. He apparently has no known cardiac history. The patient was admitted with a possible CVA. He was noted to be in a regular heart rhythm. PAST MEDICAL HISTORY: Significant for; 1. Hypertension. 2. History of TIA. 3. Dementia. PAST SURGICAL HISTORY: . SOCIAL HISTORY: Lives in a longterm. FAMILY HISTORY: . ALLERGIES: HE IS ALLERGIC TO ERYTHROMYCIN, PENICILLIN, SULFA, TAGAMET. MEDICATIONS: See nursing list. PHYSICAL EXAMINATION: GENERAL: Ill-appearing gentleman, is alert and oriented x1. VITAL SIGNS: Blood pressure of 97/70. NECK: Showed no jugular venous distention. LUNGS: Coarse breath sounds. HEART: Irregular rate and rhythm. Normal S1, S2. ABDOMEN: Nondistended. EXTREMITIES: Showed no edema. VASCULAR: Radial pulse 2+. LABORATORY DATA: Sodium 140, potassium 3.4, chloride 107, bicarbonate 18, BUN 24, creatinine 1.06, glucose 125. White blood cell count 11.0, hemoglobin 15.2, hematocrit 46.2, and his platelets are 365. EKG revealed multifocal atrial tachycardia with a nonspecific T-wave abnormality. IMPRESSION: 1. Multifocal atrial tachycardia. 2. History of cerebrovascular accident. 3. Hypertension. 4. Dementia. PLAN: This unfortunate gentleman has multifocal atrial tachycardia. I would recommend treating with IV Lopressor at this time since he has not been able to take p.o. medication. We will start the patient on p.o. Cardizem. We will follow this patient with you through his hospitalization. Job ID: [id number]
[2018-11-22 10:08] LABS: #Eosinphils 0.2 thou/uL (0.0-0.7); #Lymphocytes 1.6 thou/uL (1.20-3.40); #Monocytes 1.2 thou/uL (0.11-0.59); %Basophils 0.4 % (0.0-1.0); %Eosinophils 2.1 % (0.0-10.0); %Lymphocytes 17.7 % (21.0-51.0); %Monocytes 13.6 % (0.0-10.0); %Neutrophils 66.3 % (42.0-75.0); Hemoglobin 14.6 g/dL (14.0-18.0); Mean Corpuscular HGB CONC 33.3 g/dL (32.0-36.0); Mean Corpuscular Hemoglobin 31.1 pg (27.0-31.0); Mean Corpuscular Volume 93.4 fL (78.0-98.0); Mean Platelet Volume 7.7 fL (7.4-10.4); Platelet Count 340 thou/uL (130-400); RBC Distribution Width 12.5 % (11.5-14.5); White Blood Cell (WBC) Count 9.1 thou/uL (4.8-10.8)
[2018-11-22] MEDS: Polyethylene Glycol OPTH DROP 15 ML BOT EA EYE SCH ×3 (10:22→20:29)
[2018-11-22 10:31] LABS: Anion Gap 13 mmol/L (10-20); BUN (Urea Nitrogen) 26 mg/dL (8.4-25.7); Calc. Creatinine Clearance 66 mL/min (70-130); Calcium 8.6 mg/dL (7.8-10.44); Carbon Dioxide 21 mmol/L (23-31); Chloride 108 mmol/L (98-107); Estimated GFR-MDRD 74; Glucose 111 mg/dL (83-110); Potassium 3.5 mmol/L (3.5-5.1); Sodium 138 mmol/L (136-145)
--- NOTE | 2018-11-22 12:09 | PDOC.PN ---
- Subjective Encounter Start Date: 11/22/18 Encounter Start Time: 07:20 Pt seen for followup re: UTI. Sleepy but arousable, not answering questions, unable to complete ROS. - Objective Resuscitation Status - Order Detail: 11/18/18 15:38 Resuscitation Status Routine Resuscitation Status: FULL: Full Resuscitation Discussed with: son RANDY Reviewed: Yes Vital Signs & Weight: Vital Signs (12 hours) Temp Pulse Resp BP Pulse Ox 11/22/18 11:56 98.3 F 97 20 93/78 94 L 11/22/18 08:32 93 11/22/18 08:00 99 F 93 20 94/67 93 L 11/22/18 04:00 98.5 F 87 19 97/65 93 L Weight Weight 185 lb 3.2 oz I&O: 11/21/18 11/22/18 11/23/18 06:59 06:59 06:59 Intake Total 1837 120 Balance 1837 120 Result Diagrams: 11/22/18 09:59 11/22/18 09:59 EKG Reviewed by me: Yes (Tele: MAT) Phys Exam - Physical Examination Constitutional: NAD HEENT: moist MMs Neck: supple Respiratory: clear to auscultation bilateral Cardiovascular: irregular Gastrointestinal: soft Neurological: moves all 4 limbs Psychiatric: normal affect Dx/Plan (1) UTI (urinary tract infection) Status: Acute Comment: will continue ceftriaxone (2) TIA (transient ischemic attack) Code(s): G45.9 - TRANSIENT CEREBRAL ISCHEMIC ATTACK, UNSPECIFIED Status: Acute Comment: continue aspirin and statin (3) Multifocal atrial tachycardia Code(s): I47.1 - SUPRAVENTRICULAR TACHYCARDIA Status: Acute Comment: appreciate cardiology service input (4) Hypertension Code(s): I10 - ESSENTIAL (PRIMARY) HYPERTENSION Status: Chronic Comment: controlled - Plan * . Review of Systems - Medications/Allergies Allergies/Adverse Reactions: Allergies Allergy/AdvReac Type Severity Reaction Status Date / Time cimetidine [From Tagamet] Allergy Verified 03/14/17 16:52 cimetidine HCl [From Tagamet] Allergy Verified 03/14/17 16:52 erythromycin base Allergy Verified 03/14/17 16:52 Penicillins Allergy Verified 03/14/17 16:52 Sulfa (Sulfonamide Allergy Verified 03/14/17 16:52 Antibiotics) sulfamethoxazole Allergy Verified 03/14/17 16:52 [From Bactrim] trimethoprim [From Bactrim] Allergy Verified 03/14/17 16:52 Medications: Current Medications Acetaminophen (Tylenol) 650 mg PO Q4H PRN PRN Reason: Headache/Fever/Mild Pain (1-3) Artificial Tears (Tears Renewed 15ml Bottle) 1 drop EA EYE Q1H PRN PRN Reason: Dry Eyes Aspirin (Ecotrin) 81 mg PO DAILY [facility] Last Admin: 11/22/18 08:32 Dose: 81 mg Atorvastatin Calcium (Lipitor) 20 mg PO HS [facility] Last Admin: 11/21/18 23:00 Dose: 20 mg Bisoprolol Fumarate (Zebeta) 5 mg PO HS [facility] Last Admin: 11/21/18 23:19 Dose: Not Given Camphor/Menthol/Eucalyptus (Vicks Vaporub) 0 gm TOP Q24HR PRN PRN Reason: Congestion Digoxin (Lanoxin) 0.125 mg SLOW IVP QAM [facility] Last Admin: 11/22/18 08:32 Dose: 0.125 mg Donepezil HCl (Aricept) 10 mg PO HS [facility] Last Admin: 11/21/18 23:01 Dose: 10 mg Enoxaparin Sodium (Lovenox) 40 mg SC 0900 [facility] Last Admin: 11/22/18 08:32 Dose: 40 mg Gabapentin (Neurontin) 200 mg PO BID [facility] Last Admin: 11/22/18 08:32 Dose: 200 mg Haloperidol Lactate (Haldol) 1 mg IM Q2H PRN PRN Reason: Agitation Last Admin: 11/19/18 15:30 Dose: 1 mg Haloperidol Lactate (Haldol) 5 mg IM QPM PRN PRN Reason: Agitation Last Admin: 11/20/18 22:21 Dose: 5 mg Ceftriaxone Sodium 1 gm/ (Sodium Chloride) 100 mls @ 200 mls/hr IVPB 2000 [facility] Last Admin: 11/21/18 22:53 Dose: 100 mls Melatonin (Melatonin) 4.5 mg PO [facility] Last Admin: 11/21/18 23:01 Dose: Not Given Pantoprazole Sodium (Protonix) 40 mg PO DAILY [facility] Last Admin: 11/22/18 08:32 Dose: 40 mg Polyethylene Glycol (Miralax) 17 gm PO DAILY [facility] Last Admin: 11/22/18 08:34 Dose: Not Given Propylene Glycol (Systane Opth Drop 15ml Bot) 1 drop EA EYE TID [facility] Last Admin: 11/22/18 10:22 Dose: Not Given Psyllium Hydrophilic Mucilloid (Metamucil) 1 pk PO DAILY PRN PRN Reason: Constipation Pyridoxine HCl (Vitamin B 6) 50 mg PO HS [facility] Last Admin: 11/21/18 23:01 Dose: 50 mg Sodium Chloride (Flush - Normal Saline) 10 ml IVF PRN PRN PRN Reason: Saline Flush Last Admin: 11/20/18 09:57 Dose: 10 ml Sumatriptan Succinate (Imitrex) 50 mg PO DAILY PRN PRN Reason: Headache Tolnaftate (Tinactin 1% Cream) 0 gm TOP BID [facility] Last Admin: 11/22/18 08:33 Dose: Not Given Tramadol HCl (Ultram) 50 mg PO Q6H PRN PRN Reason: Pain
[2018-11-22] MEDS: cefTRIAXone\\ROCEPHIN 1 GM in Sodium Chloride 0.9% 100 ML IVPB SCH (20:10)
[2018-11-22] MEDS: Atorvastatin Calcium 20 MG TAB PO SCH (20:11)
[2018-11-22] MEDS: Donepezil HCl 5 MG TAB PO SCH (20:11)
[2018-11-22] MEDS: pyridOXINE 50 MG (B6) TAB PO SCH (20:11)
[2018-11-22] MEDS: Bisoprolol Fumarate 5 MG TAB PO SCH (20:13)
[2018-11-22] MEDS: Melatonin 3 MG TAB PO SCH (21:00)
[2018-11-23] MEDS: Enoxaparin Sodium 40 MG/0.4 ML SYRINGE SC SCH (09:13)
[2018-11-23] MEDS: Polyethylene Glycol 3350 17 GM Packet PO SCH (09:13)
[2018-11-23] MEDS: Aspirin 81 mg Enteric Coated Tablet PO SCH (09:13)
[2018-11-23] MEDS: Gabapentin 100 MG CAP PO SCH ×2 (09:13→21:14)
[2018-11-23] MEDS: Digoxin 0.5 MG/2 ML AMP SLOW IVP SCH (09:14)
[2018-11-23] MEDS: Polyethylene Glycol OPTH DROP 15 ML BOT EA EYE SCH ×3 (09:16→21:14)
--- NOTE | 2018-11-23 12:10 | PDOC.PN ---
- Subjective Encounter Start Date: 11/23/18 Encounter Start Time: 07:00 Pt seen for followup re: UTI. Not answering questions, unable to obtain ROS. - Objective Resuscitation Status - Order Detail: 11/18/18 15:38 Resuscitation Status Routine Resuscitation Status: FULL: Full Resuscitation Discussed with: son RANDY Reviewed: Yes Vital Signs & Weight: Vital Signs (12 hours) Temp Pulse Resp BP Pulse Ox 11/23/18 09:14 95 11/23/18 08:00 98.5 F 95 18 104/80 92 L 11/23/18 03:27 97.4 F L 109 H 14 104/69 94 L Weight Weight 185 lb 3.2 oz I&O: 11/22/18 11/23/18 11/24/18 06:59 06:59 06:59 Intake Total 120 1790 Balance 120 1790 Result Diagrams: 11/22/18 09:59 11/22/18 09:59 EKG Reviewed by me: Yes (tele: MAT) Phys Exam - Physical Examination Constitutional: NAD HEENT: moist MMs Neck: supple Respiratory: clear to auscultation bilateral Cardiovascular: RRR Gastrointestinal: soft Neurological: moves all 4 limbs Psychiatric: normal affect Dx/Plan (1) UTI (urinary tract infection) Status: Acute Comment: on ceftriaxone (2) TIA (transient ischemic attack) Code(s): G45.9 - TRANSIENT CEREBRAL ISCHEMIC ATTACK, UNSPECIFIED Status: Acute Comment: aspirin and statin (3) Multifocal atrial tachycardia Code(s): I47.1 - SUPRAVENTRICULAR TACHYCARDIA Status: Acute Comment: pt had pauses after digoxin administration (4) Hypertension Code(s): I10 - ESSENTIAL (PRIMARY) HYPERTENSION Status: Chronic Comment: controlled - Plan * . Review of Systems - Medications/Allergies Allergies/Adverse Reactions: Allergies Allergy/AdvReac Type Severity Reaction Status Date / Time chocolate flavor Allergy Verified 11/22/18 18:43 cimetidine [From Tagamet] Allergy Verified 03/14/17 16:52 cimetidine HCl [From Tagamet] Allergy Verified 03/14/17 16:52 erythromycin base Allergy Verified 03/14/17 16:52 Penicillins Allergy Verified 03/14/17 16:52 Sulfa (Sulfonamide Allergy Verified 03/14/17 16:52 Antibiotics) sulfamethoxazole Allergy Verified 03/14/17 16:52 [From Bactrim] trimethoprim [From Bactrim] Allergy Verified 03/14/17 16:52 Medications: Current Medications Acetaminophen (Tylenol) 650 mg PO Q4H PRN PRN Reason: Headache/Fever/Mild Pain (1-3) Artificial Tears (Tears Renewed 15ml Bottle) 1 drop EA EYE Q1H PRN PRN Reason: Dry Eyes Aspirin (Ecotrin) 81 mg PO DAILY [facility] Last Admin: 11/23/18 09:13 Dose: 81 mg Atorvastatin Calcium (Lipitor) 20 mg PO HS [facility] Last Admin: 11/22/18 20:11 Dose: 20 mg Bisoprolol Fumarate (Zebeta) 5 mg PO HS [facility] Last Admin: 11/22/18 20:13 Dose: Not Given Camphor/Menthol/Eucalyptus (Vicks Vaporub) 0 gm TOP Q24HR PRN PRN Reason: Congestion Donepezil HCl (Aricept) 10 mg PO HS [facility] Last Admin: 11/22/18 20:11 Dose: 10 mg Enoxaparin Sodium (Lovenox) 40 mg SC 0900 [facility] Last Admin: 11/23/18 09:13 Dose: 40 mg Gabapentin (Neurontin) 200 mg PO BID [facility] Last Admin: 11/23/18 09:13 Dose: 200 mg Haloperidol Lactate (Haldol) 1 mg IM Q2H PRN PRN Reason: Agitation Last Admin: 11/19/18 15:30 Dose: 1 mg Haloperidol Lactate (Haldol) 5 mg IM QPM PRN PRN Reason: Agitation Last Admin: 11/20/18 22:21 Dose: 5 mg Ceftriaxone Sodium 1 gm/ (Sodium Chloride) 100 mls @ 200 mls/hr IVPB 1999 [facility] Last Admin: 11/22/18 20:10 Dose: 100 mls Melatonin (Melatonin) 4.5 mg PO HS [facility] Last Admin: 11/22/18 21:00 Dose: 4.5 mg Pantoprazole Sodium (Protonix) 40 mg PO DAILY [facility] Last Admin: 11/23/18 09:14 Dose: 40 mg Polyethylene Glycol (Miralax) 17 gm PO DAILY [facility] Last Admin: 11/23/18 09:13 Dose: 17 gm Propylene Glycol (Systane Opth Drop 15ml Bot) 1 drop EA EYE TID [facility] Last Admin: 11/23/18 09:16 Dose: 1 drop Psyllium Hydrophilic Mucilloid (Metamucil) 1 pk PO DAILY PRN PRN Reason: Constipation Pyridoxine HCl (Vitamin B 6) 50 mg PO HS [facility] Last Admin: 11/22/18 20:11 Dose: 50 mg Sodium Chloride (Flush - Normal Saline) 10 ml IVF PRN PRN PRN Reason: Saline Flush Last Admin: 11/20/18 09:57 Dose: 10 ml Sumatriptan Succinate (Imitrex) 50 mg PO DAILY PRN PRN Reason: Headache Tolnaftate (Tinactin 1% Cream) 0 gm TOP BID [facility] Last Admin: 11/23/18 09:16 Dose: 1 appful Tramadol HCl (Ultram) 50 mg PO Q6H PRN PRN Reason: Pain
[2018-11-23] MEDS: Bisoprolol Fumarate 5 MG TAB PO SCH (21:14)
[2018-11-23] MEDS: Donepezil HCl 5 MG TAB PO SCH (21:15)
[2018-11-23] MEDS: Atorvastatin Calcium 20 MG TAB PO SCH (21:15)
[2018-11-23] MEDS: pyridOXINE 50 MG (B6) TAB PO SCH (21:15)
[2018-11-23] MEDS: Melatonin 3 MG TAB PO SCH (21:26)
[2018-11-23] MEDS: cefTRIAXone\\ROCEPHIN 1 GM in Sodium Chloride 0.9% 100 ML IVPB SCH (21:27)
[2018-11-24] MEDS: Polyethylene Glycol 3350 17 GM Packet PO SCH (10:30)
[2018-11-24] MEDS: Enoxaparin Sodium 40 MG/0.4 ML SYRINGE SC SCH (10:30)
[2018-11-24] MEDS: Polyethylene Glycol OPTH DROP 15 ML BOT EA EYE SCH ×3 (10:31→23:02)
[2018-11-24] MEDS: Aspirin 81 mg Enteric Coated Tablet PO SCH (10:31)
[2018-11-24] MEDS: Gabapentin 100 MG CAP PO SCH ×3 (10:31→23:04)
--- NOTE | 2018-11-24 14:49 | PDOC.PN ---
- Subjective Encounter Start Date: 11/24/18 Encounter Start Time: 07:00 Pt seen for followup re: UTI. Answering questions, denies chest pain, shortness of breath, fevers or chills. - Objective Resuscitation Status - Order Detail: 11/18/18 15:38 Resuscitation Status Routine Resuscitation Status: FULL: Full Resuscitation Discussed with: son RANDY Reviewed: Yes Vital Signs & Weight: Vital Signs (12 hours) Temp Pulse Resp BP Pulse Ox 11/24/18 11:40 98 F 66 16 102/66 96 11/24/18 08:00 97.5 F L 60 17 90/61 94 L 11/24/18 04:00 97.7 F 57 L 18 95/60 96 Weight Weight 185 lb 3.2 oz I&O: 11/23/18 11/24/18 11/25/18 06:59 06:59 06:59 Intake Total 1790 Balance 1790 Result Diagrams: 11/22/18 09:59 11/22/18 09:59 EKG Reviewed by me: Yes (Tele: sinus pauses) Phys Exam - Physical Examination Constitutional: NAD HEENT: moist MMs Neck: supple Respiratory: clear to auscultation bilateral Cardiovascular: irregular Gastrointestinal: soft Neurological: moves all 4 limbs Psychiatric: normal affect Dx/Plan (1) UTI (urinary tract infection) Status: Acute Comment: pt is on ceftriaxone (2) TIA (transient ischemic attack) Code(s): G45.9 - TRANSIENT CEREBRAL ISCHEMIC ATTACK, UNSPECIFIED Status: Acute Comment: continue aspirin and statin (3) Multifocal atrial tachycardia Code(s): I47.1 - SUPRAVENTRICULAR TACHYCARDIA Status: Acute Comment: cardiology following (4) Hypertension Code(s): I10 - ESSENTIAL (PRIMARY) HYPERTENSION Status: Chronic Comment: controlled - Plan * . Review of Systems - Review of Systems Respiratory: negative: Cough, Shortness of Breath, SOB with Excertion, Pleuritic Pain, Wheezing Cardiovascular: negative: chest pain, palpitations, orthopnea, paroxysmal nocturnal dyspnea, edema, light headedness - Medications/Allergies Allergies/Adverse Reactions: Allergies Allergy/AdvReac Type Severity Reaction Status Date / Time chocolate flavor Allergy Verified 11/22/18 18:43 cimetidine [From Tagamet] Allergy Verified 03/14/17 16:52 cimetidine HCl [From Tagamet] Allergy Verified 03/14/17 16:52 erythromycin base Allergy Verified 03/14/17 16:52 Penicillins Allergy Verified 03/14/17 16:52 Sulfa (Sulfonamide Allergy Verified 03/14/17 16:52 Antibiotics) sulfamethoxazole Allergy Verified 03/14/17 16:52 [From Bactrim] trimethoprim [From Bactrim] Allergy Verified 03/14/17 16:52 Medications: Current Medications Acetaminophen (Tylenol) 650 mg PO Q4H PRN PRN Reason: Headache/Fever/Mild Pain (1-3) Last Admin: 11/24/18 03:50 Dose: 650 mg Artificial Tears (Tears Renewed 15ml Bottle) 1 drop EA EYE Q1H PRN PRN Reason: Dry Eyes Aspirin (Ecotrin) 81 mg PO DAILY [facility] Last Admin: 11/24/18 10:31 Dose: 81 mg Atorvastatin Calcium (Lipitor) 20 mg PO HS [facility] Last Admin: 11/23/18 21:15 Dose: 20 mg Camphor/Menthol/Eucalyptus (Vicks Vaporub) 0 gm TOP Q24HR PRN PRN Reason: Congestion Donepezil HCl (Aricept) [address] [facility] Last Admin: 11/23/18 21:15 Dose: 10 mg Enoxaparin Sodium (Lovenox) 40 mg SC 0900 [facility] Last Admin: 11/24/18 10:30 Dose: 40 mg Gabapentin (Neurontin) 200 mg PO BID [facility] Last Admin: 11/24/18 10:31 Dose: 200 mg Haloperidol Lactate (Haldol) 1 mg IM Q2H PRN PRN Reason: Agitation Last Admin: 11/19/18 15:30 Dose: 1 mg Haloperidol Lactate (Haldol) 5 mg IM QPM PRN PRN Reason: Agitation Last Admin: 11/20/18 22:21 Dose: 5 mg Ceftriaxone Sodium 1 gm/ (Sodium Chloride) 100 mls @ 200 mls/hr IVPB 2000 [facility] Last Admin: 11/23/18 21:27 Dose: 100 mls Melatonin (Melatonin) 4.[address] [facility] Last Admin: 11/23/18 21:26 Dose: 4.5 mg Pantoprazole Sodium (Protonix) 40 mg PO DAILY [facility] Last Admin: 11/24/18 10:31 Dose: 40 mg Polyethylene Glycol (Miralax) 17 gm PO DAILY [facility] Last Admin: 11/24/18 10:30 Dose: 17 gm Propylene Glycol (Systane Opth Drop 15ml Bot) 1 drop EA EYE TID [facility] Last Admin: 11/24/18 10:31 Dose: 1 drop Psyllium Hydrophilic Mucilloid (Metamucil) 1 pk PO DAILY PRN PRN Reason: Constipation Pyridoxine HCl (Vitamin B 6) 50 mg PO HS [facility] Last Admin: 11/23/18 21:15 Dose: 50 mg Sodium Chloride (Flush - Normal Saline) 10 ml IVF PRN PRN PRN Reason: Saline Flush Last Admin: 11/20/18 09:57 Dose: 10 ml Sumatriptan Succinate (Imitrex) 50 mg PO DAILY PRN PRN Reason: Headache Tolnaftate (Tinactin 1% Cream) 0 gm TOP BID [facility] Last Admin: 11/24/18 10:32 Dose: 1 appful Tramadol HCl (Ultram) 50 mg PO Q6H PRN PRN Reason: Pain
[2018-11-24 17:04] LABS: Anion Gap 14 mmol/L (10-20); BUN (Urea Nitrogen) 15 mg/dL (8.4-25.7); Calc. Creatinine Clearance 70 mL/min (70-130); Calcium 8.9 mg/dL (7.8-10.44); Carbon Dioxide 22 mmol/L (23-31); Chloride 104 mmol/L (98-107); Estimated GFR-MDRD 80; Glucose 95 mg/dL (83-110); Potassium 3.5 mmol/L (3.5-5.1); Sodium 136 mmol/L (136-145)
--- NOTE | 2018-11-24 18:05 | PDOC.EVN ---
Event Note - Event Note Event Note: 16:00-16:20 hours. Discussed with patient's daughter Swati. Updated re: current medical issues and need for pacemaker, Also discussed re: Code status. Pt's code status is now DNAR. Family does not want pacemaker. Likely transfer back to [place] when cardiac issues managed medically. palliative care consulted.
[2018-11-24] MEDS: Haloperidol Lactate 5 MG/ML VIAL IM PRN (22:53)
[2018-11-24] MEDS: Melatonin 3 MG TAB PO SCH ×2 (22:55→23:04)
[2018-11-24] MEDS: Donepezil HCl 5 MG TAB PO SCH ×2 (22:55→23:04)
[2018-11-24] MEDS: Atorvastatin Calcium 20 MG TAB PO SCH ×2 (22:56→23:03)
[2018-11-24] MEDS: pyridOXINE 50 MG (B6) TAB PO SCH ×2 (22:56→23:16)
--- NOTE | 2018-11-25 05:40 | CON ---
DATE OF CONSULTATION: 11/24/2018 ELECTROPHYSIOLOGY CONSULTATION REASON FOR CONSULTATION: I am seeing Mr. Tolentino at our [facility] telemetry/stroke floor as an electrophysiology wireless consultant. PROBLEMS: 1. 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 2. Paroxysmal atrial arrhythmias with rapid ventricular rate, essentially tachy-zaki syndrome. 3. Current admission with TIA with prior history of stroke. 4. History of dementia. 5. UTIs treated with antibiotics. 6. Risk factors including hypertension. ALLERGIES: CIMETIDINE, ERYTHROMYCIN. MEDICATIONS: At home included; 1. Gabapentin. 2. Protonix. 3. Haldol. 4. Metamucil. 5. Bisoprolol. 6. Donepezil. SUBJECTIVE: Mr. Tolentino is here admitted on the with new neurological symptoms. He underwent extensive evaluation with CT and brain angiogram and diagnosed with a TIA. He does have history of prior stroke. Neurology evaluated him. He was also noted to have multifocal atrial tachycardia/atrial arrhythmias, but then later episodes of atrial fibrillation and flutter was also seen. He was evaluated by Dr. Gross. Beta carole and p.o. Cardizem were initiated, eventually did have some kind of pausing and his negative chronotropic agents were stopped. His last dose was last night. Over the day today, he has multiple long pauses up to 5.5 seconds, appears to be due to complete AV block. Again, his negative chronotropic agents were stopped and subsequently, his heart rate improved. He is currently in normal rhythm. days, he has minimal discernible symptoms. He is a poor historian. 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 No fever, chills, or cough. No passing-out spells noted. Denies angina. He is able to lie flat. The rest of 12-point system is otherwise unremarkable. PAST MEDICAL HISTORY: As above. SOCIAL HISTORY: The patient denies smoking, EtOH, or drug abuse. FAMILY HISTORY: Noncontributory. OBJECTIVE DATA: VITAL SIGNS: Blood pressure is 102/66, heart rate 66, respirations 16, temperature 98 degrees Fahrenheit. GENERAL: Alert and oriented x1, elderly man in no apparent distress. NECK: Supple. Jugular vein is difficult to elicit. CHEST: Coarse without crackles. HEART: Sounds are regular rate and rhythm. No murmur or gallop. ABDOMEN: Benign. Bowel sounds positive. EXTREMITIES: Lower extremity without edema, clubbing or cyanosis. Pulses are adequate. DATABASE: EKG is reviewed. Initial EKG reveals sinus rhythm with PACs, narrow QRS at 84 milliseconds, QTc is 425 milliseconds. Subsequent EKGs reveals episode of sinus rhythm. Also, episodic two-to-one AV block is noted. PVCs are noted. Some rapid atrial arrhythmias are documented at times which could be due to multifocal atrial tachycardia, but episodes of atrial fibrillation are clearly a possibility as well. Today, resolution of these rates and rhythms are seen. Sinus rhythm ensued but with periodic complete AV block is seen. Multiple non-conducted PACs are noted. Longest pause is 5.8 seconds. LABORATORY DATA: White cells 9.1, hemoglobin is 14.6, platelet count is 340. INR 1.1. Sodium 138, potassium 3.5, BUN is 26, creatinine 0.96. ASSESSMENT AND PLAN: Mr. Tolentino is a pleasant 88-year-old man with prior history of dementia, who was admitted with new neurological symptoms. CT was negative for bleed and MRI was negative for new infarction, but prior area of infarct noted. He has episode of rapid heart rates partially due to multifocal atrial tachycardia, but episodes of atrial fibrillation cannot be completely ruled out either. On the other hand with additional AV katharine blocking agents, marked bradycardia noted, especially this morning, his most recent beta carole administration was last night. With holding these agents, his heart rates have been stabilizing but he has essential tachy-zaki syndrome. Again, adding pacemaker would be a very reasonable approach which will allow us using these AV katharine blocking agents control his heart rate. His recent TIA naturally puts him at somewhat high risk for perioperative complications but overall, I find him stable for the implant. His benefits were discussed. We will get consent from the family as well. He will be scheduled with another date. In the meantime, external pacing could be considered. Job ID: [id number]
--- NOTE | 2018-11-25 07:32 | PDOC.PN ---
- Subjective Encounter Start Date: 11/25/18 Encounter Start Time: 09:30 Subjective: Patient was agitated and uncooperative last night. Better this AM. No -: complaints for me. Denies pain. - Objective Resuscitation Status - Order Detail: 11/24/18 18:05 Resuscitation Status Routine Resuscitation Status: DNAR: NO Resuscitation Discussed with: daughter RANDY Reviewed: Yes Vital Signs & Weight: Vital Signs (12 hours) Temp Pulse Resp BP Pulse Ox 11/25/18 04:00 97.7 F 72 19 114/74 92 L 11/25/18 00:00 97.6 F 83 20 96 11/24/18 20:56 91 L 11/24/18 20:55 95 11/24/18 20:00 97.6 F 65 19 96/61 91 L Weight Weight 185 lb 3.2 oz I&O: 11/24/18 11/25/18 11/26/18 06:59 06:59 06:59 Output Total 100 Balance -100 Result Diagrams: 11/22/18 09:59 11/24/18 16:26 Phys Exam - Physical Examination Constitutional: NAD HEENT: moist MMs Respiratory: no wheezing, no rales, no rhonchi Cardiovascular: irregular Gastrointestinal: soft, positive bowel sounds Neurological: non-focal Deviation from normal: flat affect, very hard of hearing, disoriented to location and situation Dx/Plan (1) UTI (urinary tract infection) Status: Acute Comment: Finished 7 days of IV Rocephin. Switching to omnicef for another 5 days for complicated UTI in elderly man. (2) TIA (transient ischemic attack) Code(s): G45.9 - TRANSIENT CEREBRAL ISCHEMIC ATTACK, UNSPECIFIED Status: Acute Comment: MRI negative for stroke, continue aspirin and statin (3) Multifocal atrial tachycardia Code(s): I47.1 - SUPRAVENTRICULAR TACHYCARDIA Status: Acute Comment: Tachy- zaki syndrome. Not tolerating AV katharine agents. Family refusing pacemaker. Now DNAR. (4) Dementia Code(s): F03.90 - UNSPECIFIED DEMENTIA WITHOUT BEHAVIORAL DISTURBANCE Status: Chronic Qualifiers: Dementia type: Alzheimer's disease Alzheimer's disease onset: unspecified onset Dementia behavioral disturbance: without behavioral disturbance Qualified Code(s): G30.9 - Alzheimer's disease, unspecified; F02.80 - Dementia in other diseases classified elsewhere without behavioral disturbance (5) Hypertension Code(s): I10 - ESSENTIAL (PRIMARY) HYPERTENSION Status: Chronic Comment: controlled (6) Hearing loss Code(s): H91.90 - UNSPECIFIED HEARING LOSS, UNSPECIFIED EAR Status: Chronic - Plan cont current plan of care, continue antibiotics, PT/OT Palliative care to have meeting with patient today. Would recommend back to -: NH on hospice if they don't want further intervention for his arrhythmia -: problems. DNR. * . - Discharge Day Encounter end time: 09:40
[2018-11-25] MEDS: Polyethylene Glycol 3350 17 GM Packet PO SCH ×2 (12:29→12:38)
[2018-11-25] MEDS: Cefdinir 300 MG CAP PO SCH ×2 (12:29→21:01)
[2018-11-25] MEDS: Aspirin 81 mg Enteric Coated Tablet PO SCH (12:30)
[2018-11-25] MEDS: Gabapentin 100 MG CAP PO SCH ×2 (12:30→21:01)
[2018-11-25] MEDS: Polyethylene Glycol OPTH DROP 15 ML BOT EA EYE SCH ×3 (12:35→21:02)
--- NOTE | 2018-11-25 14:57 | PDOC.CTH ---
Cardiology Progress Note - Subjective EP PROGRESS NOTE: 11/25/18 Seen and evaluated for atrial arrhythmias and advanced conduction disease. Patient decided against PPM implant yesterday. He was agitated last night requiring haldol and has questionable orientation today. He is now inquiring about PPM once again. Family bedside (Dtr- MPOA) - Objective Vital Signs Temp Pulse Resp BP Pulse Ox 11/25/18 11:52 98.4 F 64 16 79/38 L 95 11/25/18 08:00 94 L 11/25/18 07:51 98.2 F 78 20 119/84 94 L 11/25/18 04:00 97.7 F 72 19 114/74 92 L Weight 185 lb 3.2 oz 11/24/18 11/25/18 11/26/18 06:59 06:59 06:59 Output Total 100 Balance -100 - Physical Examination General/Neuro: NAD, other: (A/Ox person, place. Poor orientation about situation. ) Neck: carotid US brisk, no JVD present Lungs: unlabored respirations Heart: RRR Abdomen: NT/ND, soft - Telemetry Telemetry Rhythm: SR - Labs Result Diagrams: 11/22/18 09:59 11/24/18 16:26 Troponin/CKMB Troponin I Less than 0.010 ng/mL (< 0.028) 11/18/18 17:37 - Assessment/Plan 1. Paroxysmal complete heart block -up to 5.5 seconds with concurrent AV katharine blocking rx (metoprolol and cardizem) which have been DCd 2. 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 TIA 5. UTI 6. HTN Permanent pacemaker continues to be the recommendation. Right now his ability to make medical decision independently is questionable. He quite clearly voiced not wanting PPM yesterday when he was more oriented. Palliative care is involved and pt is DNR, not hospice at this point. He has eaten today so no PPM can be placed today. Wednesday is a possibility if he wishes to move forward and can consent. If he is deemed unable to make his own decisions, his daughter is his MPOA and may consent. I will check in on Wednesday.
--- NOTE | 2018-11-25 20:19 | EKG ---
Test Reason : Blood Pressure : / mmHG Vent. Rate : 116 BPM Atrial Rate : 116 BPM P-R Int : 000 ms QRS Dur : 088 ms QT Int : 334 ms P-R-T Axes : 000 -08 -28 degrees QTc Int : 464 ms Atrial fibrillation with rapid ventricular response with premature ventricular or aberrantly conducte d complexes Inferior infarct (cited on or before 18-NOV-2018) Abnormal ECG When compared with ECG of 18-NOV-2018 14:34, (Unconfirmed) Atrial fibrillation has replaced Sinus rhythm Vent. rate has increased BY 46 BPM Confirmed by Wilfrido HAMILTON ([id number]) on 11/25/2018 8:19:29 PM Referred By: SAKINA Confirmed By:Wilfrido HAMILTON
[2018-11-25] MEDS: Atorvastatin Calcium 20 MG TAB PO SCH (21:01)
[2018-11-25] MEDS: Artificial Tear Sol 15 ML BOT EA EYE PRN ×2 (21:02→21:36)
[2018-11-25] MEDS: Donepezil HCl 5 MG TAB PO SCH (21:02)
[2018-11-25] MEDS: pyridOXINE 50 MG (B6) TAB PO SCH (21:03)
[2018-11-25] MEDS: Melatonin 3 MG TAB PO SCH (21:03)
[2018-11-26] MEDS: Polyethylene Glycol OPTH DROP 15 ML BOT EA EYE SCH ×3 (10:41→21:29)
[2018-11-26] MEDS: Cefdinir 300 MG CAP PO SCH (10:42)
[2018-11-26] MEDS: Polyethylene Glycol 3350 17 GM Packet PO SCH (10:43)
[2018-11-26] MEDS: Aspirin 81 mg Enteric Coated Tablet PO SCH (10:43)
[2018-11-26] MEDS: Gabapentin 100 MG CAP PO SCH ×2 (10:43→21:29)
--- NOTE | 2018-11-26 11:28 | PRG ---
DATE OF SERVICE: 11/26/2018 SUBJECTIVE: The patient is seen and examined at bedside. He is very hard hearing. He is blind. He does not have much complaints to offer. OBJECTIVE: VITAL SIGNS: Blood pressure is 87/66, temperature is 97.5, O2 saturation is 92% on room air, respirations 18, pulse is 79. HEENT: His head is atraumatic and normocephalic. Oral mucosa is moist. NECK: Thyroid is not palpable. LUNGS: Clear. HEART: S1 and S2 normal. No S3. No S4. ABDOMEN: Soft, nontender, and nondistended. EXTREMITIES: No clubbing, cyanosis, or edema. NEUROLOGIC: He follows my commands. He moves his all four extremities. There is no any motor deficits. Cranial nerves grossly intact. LABORATORY DATA: None today. IMPRESSION: 1. Paroxysmal complete heart block. Apparently, the patient is changing his mind back and forth regarding pacemaker placement. Hides Inspector expressed recommendation and he is going to home watch him for additional day, but we will talk to the patient's power of estate planning attorney and try to clarify the situation and make sure to have this order and agreement of all parties. 2. Paroxysmal atrial fibrillation. 3. Tachy-zaki syndrome. 4. Transient ischemic attack. 5. Urinary tract infection. I will stop his Omnicef and start Cipro since there is severe interaction between Cipro and Aricept. We will stop Aricept for now until he finishes his Cipro course, which will be on the 30 of November, which means four more days. 6. Hypertension per history, but we will continue this observation. 7. We continue DNR status. We have just changed medicine in terms of antibiotic treatment and the rest is basically the same. Job ID: [id number]
--- NOTE | 2018-11-26 11:40 | EKG ---
Test Reason : Blood Pressure : / mmHG Vent. Rate : 070 BPM Atrial Rate : 070 BPM P-R Int : 284 ms QRS Dur : 084 ms QT Int : 394 ms P-R-T Axes : 043 004 -03 degrees QTc Int : 425 ms Sinus rhythm with 1st degree A-V block with Premature atrial complexes Cannot rule out Inferior infarct , age undetermined Abnormal ECG Confirmed by ELISSA VARGAS ([id number]), story editor MARCI DIAMOND ([id number]) on 11/26/2018 11:39:34 AM Referred By: Confirmed By:ELISSA VARGAS
[2018-11-26] MEDS: Ciprofloxacin 500 MG TAB PO SCH (21:28)
[2018-11-26] MEDS: Melatonin 3 MG TAB PO SCH (21:28)
[2018-11-26] MEDS: Atorvastatin Calcium 20 MG TAB PO SCH (21:29)
[2018-11-26] MEDS: pyridOXINE 50 MG (B6) TAB PO SCH (21:29)
[2018-11-26] MEDS: Haloperidol Lactate 5 MG/ML VIAL IM PRN (23:12)
[2018-11-27] MEDS: Ciprofloxacin 500 MG TAB PO SCH (05:54)
[2018-11-27] MEDS: Polyethylene Glycol OPTH DROP 15 ML BOT EA EYE SCH ×2 (08:31→15:41)
[2018-11-27] MEDS: Aspirin 81 mg Enteric Coated Tablet PO SCH (08:31)
[2018-11-27] MEDS: Gabapentin 100 MG CAP PO SCH (08:31)
[2018-11-27] MEDS: Polyethylene Glycol 3350 17 GM Packet PO SCH (08:31)
[2018-11-27 12:06] VITALS: TEMP 97.8
[2018-11-27 16:33] VITALS: BP 141/68
--- NOTE | 2018-11-27 17:29 | DIS ---
DATE OF ADMISSION: 11/21/2018 DATE OF DISCHARGE: 11/27/2018 ADMISSION DIAGNOSES: 1. Weakness. 2. Urinary tract infection. 3. Dementia. 4. Hypertension. 5. Gastroesophageal reflux disease. 6. Abnormal thyroid gland. DISCHARGE DIAGNOSES: 1. Urinary tract infection. 2. Paroxysmal complete heart block, resolved. 3. Paroxysmal atrial fibrillation, resolved. 4. Tachy-zaki syndrome. 5. Transient ischemic attack. 6. Hypertension. 7. Hypokalemia, corrected. 8. Thyroid mass, status post biopsy by Dr. Bruner in [place]. CONSULTANTS: Dr. Leo Gross, Cardiology Service; Dr. Edson Rausch, Neurology Service; Dr. Josué Bosch, Electrophysiology. Service. HOSPITAL COURSE: The patient was an 88-year-old male who presented to the emergency room with complaints of generalized weakness. He came from [facility]. He has history of legal blindness and legal deafness. He apparently had some right-sided facial droop and right upper extremity weakness prior to evaluation in the emergency room as because of that, he was sent out to the emergency room for evaluation, but those symptoms appeared to be resolved in the emergency room and he got admitted for further management and stroke prevention measures. At the time of evaluation his hemoglobin was 13.3. White count was normal. Platelets were normal. INR was 1.1. Potassium level was normal. Sodium level was normal and CO2 was 22, creatinine was normal. His CK was 304. Troponin I was normal. Urinalysis was positive for large amount of leukocyte esterase. Electrocardiogram showed normal sinus rhythm with premature atrial complexes. No ST changes to suggest an acute coronary syndrome. He had a noncontrast CT scan of the brain, which did not show any acute intracranial abnormalities. He also had CT scan of [place], which did not show any hemodynamically significant stenosis involving the arterial structures of the neck. Intracranial arterial structures did not demonstrate any evidence of central occlusion. He had abnormal appearance of the thyroid gland and radiologist recommended followup thyroid ultrasound. The patient was admitted to the hospital with working diagnosis of transient ischemic attack. He was started on aspirin and statin. He was started on empiric antibiotic for presumed urinary tract infection and the plan was to do outpatient workup on his thyroid gland. 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 The production bow maker was consulted when EKG showed multifocal atrial tachycardia with nonspecific T-wave abnormalities. The patient was seen by Dr. Gross, who recommended treatment with IV Lopressor and p.o. Cardizem. Subsequently, marked bradycardia was noticed and both agents were discontinued and director of digital platforms was consulted. Dr. Josué Bosch saw the patient for EP evaluation, who considered to place the pacemaker, but the patient's heart gradually recovered from this episode and did not deteriorate anymore after that. In the meantime, urine culture came back positive for E coli which was sensitive to Cipro, ceftriaxone and ceftazidime along with cefepime and levofloxacin and meropenem. The patient's cardiac condition recovered and he was in sinus rhythm, so the whole idea of putting the pacemaker was dropped by EP/Cardiology Service and today he seems to be doing quite well. Blood pressure is 93/64, temperature is 97.8, pulse is 95, respiratory rate is 18, O2 saturation is 94%. The patient was continued on aspirin and atorvastatin. He is ready to be discharged back to his care home. His vitals as mentioned above. He is seen and evaluated before he is discharged. ACTIVITY: As tolerated. DIET: Heart healthy. MEDICATIONS: At the time of discharge Aricept 10 mg at bedtime, cefdinir 300 mg twice a day for additional 5 days, atorvastatin 20 mg at bedtime, aspirin 81 mg once a day, tramadol p.r.n. 50 mg q.6 hours, Tinactin 108 g powder one application topical twice a day, sumatriptan 50 mg p.o. daily p.r.n., Metamucil, polyethylene glycol, pantoprazole 40 mg once a day, melatonin 5 mg at bedtime, haloperidol p.r.n. as needed, gabapentin 200 mg twice a day, Aricept 10 mg at bedtime, acetaminophen 325 mg two tablets every 4 hours p.r.n. as needed. FOLLOWUP: The patient is supposed to follow up with Dr. Bruner for further evaluation of his thyroid mass. Also, he will follow up with primary care physician in 1 week. TIME SPENT: Discharge time spent on this patient is more than 30 minutes. Job ID: [id number]
== END 2018-11-27 16:46 | DRG 69 ==
LOC: ERS 13:35 → 2SE 15:12 → OBSVTOIN 11-21 10:57
PROVIDERS: ADMIT Internal Medicine; ATTEND Internal Medicine
DX: G45.9 Transient cerebral ischemic attack, unspecified (principal); N39.0 Urinary tract infection, site not specified; I47.1 Supraventricular tachycardia; I10 Essential (primary) hypertension; F03.90 Unspecified dementia, unspecified severity, without behavioral disturbance, psychotic disturbance, mood disturbance, and anxiety; G30.9 Alzheimer's disease, unspecified; F02.80 Dementia in other diseases classified elsewhere, unspecified severity, without behavioral disturbance, psychotic disturbance, mood disturbance, and anxiety; Z86.73 Personal history of transient ischemic attack (TIA), and cerebral infarction without residual deficits; H91.90 Unspecified hearing loss, unspecified ear; I48.0 Paroxysmal atrial fibrillation; Z66 Do not resuscitate; K21.9 Gastro-esophageal reflux disease without esophagitis
CPT/HCPCS: 36415; 36416; 70450; 70496; 70498; 70551; 80048; 80053; 80061; 81003; 81015; 82550; 83735; 84439; 84443; 84481; 84484; 85025; 85610; 85730; 87077; 87086; 87186; 93005; 93010; 93306; J0696; J1160; J1630; J1650; J2060; J7050

== ENCOUNTER 2019-11-06 11:11 | Emergency (ER) | payer MEDICARE ==
[2019-11-06 11:53] LABS: #Basophils 0.1 thou/uL (0.0-0.2); #Eosinphils 0.2 thou/uL (0.0-0.7); #Lymphocytes 3.7 thou/uL (1.20-3.40); #Monocytes 1.4 thou/uL (0.11-0.59); #Neutrophils 7.6 thou/uL (1.40-6.50); %Basophils 0.9 % (0.0-1.0); %Eosinophils 1.6 % (0.0-10.0); %Lymphocytes 28.6 % (21.0-51.0); %Monocytes 10.8 % (0.0-10.0); %Neutrophils 58.2 % (42.0-75.0); Hemoglobin 13.8 g/dL (14.0-18.0); Mean Corpuscular HGB CONC 31.3 g/dL (32.0-36.0); Mean Corpuscular Hemoglobin 28.3 pg (27.0-31.0); Mean Corpuscular Volume 90.4 fL (78.0-98.0); Mean Platelet Volume 9.7 fL (7.4-10.4); Platelet Count 294 thou/uL (130-400); RBC Distribution Width 14.5 % (11.5-14.5); Red Blood Cell (RBC) Count 4.89 mill/uL (4.70-6.10)
--- NOTE | 2019-11-06 11:53 | RAD ---
EXAM: CHEST ONE VIEW HISTORY: Injury after a fall. COMPARISON: 11/01/2017. FINDINGS: There is increased masslike density in the right paramediastinal location also seen on prior study. A gain noted is associated tracheal deviation. A large right thyroid mass extending into the mediastinum was seen on prior CT cervical spine on 01/22/2017. Mild increased interstitial densities a re seen at the left lung base. Similar finding was seen on the prior exam, and this may be attributable to mild chronic lung changes. A calcified granuloma is again seen in the left upper lung zone. No pleural effusion or pneumothorax is seen. Vascular calcifications are again seen in a tortuous thoracic aorta. Degenerative changes noted in the spine. No obvious fracture is appreciated on this exam. IMPRESSION: 1. No acute cardiopulmonary process. 2. Right paratracheal and paramediastinal mass which is seen on prior CT examinations and was shown t o be secondary to a large right thyroid mass and associated tortuosity of vascular structures. 3. Mild prominence of interstitial densities left lung base also seen on prior study and is likely re lated to mild chronic lung changes.
[2019-11-06 12:14] LABS: ALT (SGPT) 7 U/L (8-55); AST (SGOT) 15 U/L (5-34); Albumin 3.9 g/dL (3.4-4.8); Alkaline Phosphatase 84 U/L (40-110); Anion Gap 13 mmol/L (10-20); BUN (Urea Nitrogen) 16 mg/dL (8.4-25.7); Bilirubin, Total 0.5 mg/dL (0.2-1.2); Calc. Creatinine Clearance 0 mL/min (70-130); Calcium 9.5 mg/dL (7.8-10.44); Carbon Dioxide 25 mmol/L (23-31); Chloride 106 mmol/L (98-107); Estimated GFR-MDRD 58; Globulin 3.6 g/dL (2.4-3.5); Glucose 108 mg/dL (83-110); Potassium 4.3 mmol/L (3.5-5.1); Protein, Total 7.5 g/dL (5.8-8.1); Sodium 140 mmol/L (136-145)
[2019-11-06 12:31] LABS: Bacteria/HPF 4+ HPF (None Seen); Bilirubin Negative (Negative); Blood, Urine 1+ (Negative); Clarity Turbid (Clear); Glucose, Urine (Dipstick) Normal (Negative); Leukocyte 500 Leu/uL (Negative); Nitrite 2+ (Negative); Protein, Urine (Dipstick) 50 mg/dL (Neg-Trace); Squamous Epithelial None Seen HPF (0-3); Urobilinogen Normal mg/dL (Less than 2); WBC/HPF Greater than 50 HPF (0-3)
--- NOTE | 2019-11-06 12:49 | CT ---
Head CT without contrast 11/06/2019: COMPARISON: 11/18/2018 HISTORY: Fall, pain TECHNIQUE: Axial CT imaging at 5 mm intervals from vertex through skull base without contrast FINDINGS: The imaged paranasal sinuses and mastoid air cells are well aerated. There is no displaced calvarial fracture. There are areas of hypodensity involving the bilateral occipital lobes and bilateral cerebellar hemis pheres suggesting areas of prior infarction, similar when compared to the prior examination. Stable volume loss is noted within the MCA territory on the left. No intracranial hemorrhage, midline shift, or mass effect. IMPRESSION: No intracranial hemorrhage or displaced calvarial fracture.
--- NOTE | 2019-11-06 12:54 | CT ---
CT cervical spine without contrast: 11/06/2019 COMPARISON: 01/22/2017 HISTORY: Fall, trauma, pain TECHNIQUE: Axial CT imaging at 2.5 mm intervals through the cervical spine without contrast. Coronal and sagittal reformatted imaging obtained. FINDINGS: Imaged portions of the occipital condyles appear grossly unremarkable. The occipital condyl e is not fully imaged on the right. The craniocervical junction appears intact. There is degenerative change at the atlantoaxial interspace. No evidence for a dens fracture is noted. The C1- 2 articulation appears unremarkable. The cervicothoracic junction appears intact. There is prominent disc space narrowing with degenerative endplate change at C3-4, C4-5, C5-6, and C6 -7. Posterior osteophyte formation noted at C5-6 and C6-7. Anterior osteophyte formation noted at C2-3 through C6-7. No anterolisthesis or retrolisthesis. No prevertebral soft tissue swelling. The thyroid gland is markedly enlarged, particularly on the right, with numerous right thyroid nodule s demonstrate peripheral calcification, not optimally imaged on this examination. No significant change is seen with regard to the thyroid gland. Enlarged right thyroid lobe causes mass effect on th e right aspect of the trachea which is slightly deviated to the left. The imaged lung apices are unremarkable. No displaced fracture or evidence of dislocation. IMPRESSION: Numerous chronic findings as described above. No acute fracture or evidence of dislocatio n is appreciated.
== END 2019-11-06 14:06 | disposition home or self-care (01) ==
LOC: ERS 11:11
DX: N39.0 Urinary tract infection, site not specified (principal); R51 Headache; K21.9 Gastro-esophageal reflux disease without esophagitis; N40.0 Benign prostatic hyperplasia without lower urinary tract symptoms; E78.5 Hyperlipidemia, unspecified; E78.00 Pure hypercholesterolemia, unspecified; E78.2 Mixed hyperlipidemia; I10 Essential (primary) hypertension; M19.90 Unspecified osteoarthritis, unspecified site; F03.90 Unspecified dementia, unspecified severity, without behavioral disturbance, psychotic disturbance, mood disturbance, and anxiety; F41.9 Anxiety disorder, unspecified; F32.9 Major depressive disorder, single episode, unspecified; Z87.891 Personal history of nicotine dependence; Z86.73 Personal history of transient ischemic attack (TIA), and cerebral infarction without residual deficits; Z79.82 Long term (current) use of aspirin; W18.30XA Fall on same level, unspecified, initial encounter
CPT/HCPCS: 36415; 51701; 70450; 71045; 72125; 80053; 81003; 81015; 84484; 85025; 87077; 87086; 87186; 93005; 94760